=== PATIENT | male | born 1955 | race Caucasian/White ===

== ENCOUNTER 2016-12-05 14:58 | Emergency (ER) | payer OTHER ==
[2016-12-05 15:17] VITALS: BP 158/72; PULSE 66; TEMP 98.2; BMI 26.4
--- NOTE | 2016-12-05 16:51 | PDOC ---
History of Present Illness <Rosy Stevens - Last Filed: 12/05/16 16:53> - General History Source: Patient Exam Limitations: No Limitations - History of Present Illness Initial Comments: 12/05/16 17:00 The patient is a 61 year old male, with a significant past medical history of AFib (on aspirin), hypertension, hyperlipidemia, and anxiety, who presents to the emergency department complaining of pain in his mouth for approximately 2 weeks. Patient reports that earlier in the fall he was evaluated for his pain by his dentist, Dr. Anderson, who suggested the patient needed a root canal. At the time, Dr. Anderson was unable to perform the root canal, thus the patient was referred to an oral surgeon for extraction of his tooth. After the tooth extraction the patient reports associated pain in his gums, for which his dentist recommended Sensodyne and ACT. Patient reports the Sensodyne and ACT resolved his pain in April of 2016. However, as of 2 weeks ago, the pain returned. He describes the pain as a diffuse intermittent sharpness. He reports tearfulness and fluid in his ears. Yesterday, patient reports new onset of a headache. Patient reports he has followed up with his dentist, oral surgeon, and director of sales and marketing for evaluation of his symptoms. Patient states he was referred to a neurologist for further evaluation of his pain. Patient denies any fever, chills, cough, or dizziness. He denies any trauma to the site of his pain. Allergies: None reported Past Surgical History: Ablations X2 Social History: Current everyday smoker. No ETOH or drug use. Dentist: Dr. Anderson <Tico Zuniga - Last Filed: 12/05/16 17:04> - General Chief Complaint: Pain Stated Complaint: PAIN IN MOUTH Time Seen by Provider: 12/05/16 15:55 Past History - Past Medical History Cardiac Disorders: Yes (A FIB) Disorders: Yes HTN: Yes Hypercholesterolemia: Yes Psychiatric Problems: Yes (ANXIETY) - Surgical History Cardiac Surgery: Yes (ABLATIONS X 2FOR AFIB) - Psycho/Social/Smoking Cessation Hx Anxiety: No Suicidal Ideation: No Smoking History: Current every day smoker Number of Cigarettes Smoked Daily: 20 Information on smoking cessation initiated: Yes 'Breaking Loose' booklet given: 12/05/16 Hx Alcohol Use: No Drug/Substance Use Hx: No Substance Use Type: None <Rosy Stevens - Last Filed: 12/05/16 16:53> <Tico Zuniga - Last Filed: 12/05/16 17:04> - Past Medical History Allergies/Adverse Reactions: Allergies Allergy/AdvReac Type Severity Reaction Status Date / Time No Known Allergies Allergy Verified 12/05/16 15:01 Home Medications: Ambulatory Orders Aspirin [ASA -] 81 mg PO DAILY 12/05/16 Atenolol [Tenormin -] 50 mg PO DAILY 12/05/16 Atorvastatin Ca [Lipitor] 10 mg PO HS 12/05/16 Clonazepam [KlonoPIN] 0.5 mg PO DAILY 12/05/16 Gabapentin 300 mg PO ASDIR #90 capsule 12/05/16 Losartan Potassium 25 mg PO DAILY 12/05/16 Tamsulosin HCl 0.4 mg PO DAILY 12/05/16 Review of Systems - Review of Systems Able to Perform ROS?: Yes Comments:: 12/05/16 17:00 GENERAL/CONSTITUTIONAL: No fever or chills. No weakness. HEAD, EYES, EARS, NOSE AND THROAT: Yes: +diffuse, mouth pain, +nasal drip, + fluid in ear. No change in vision. No ear pain or discharge. No sore throat. CARDIOVASCULAR: No chest pain or shortness of breath. RESPIRATORY: No cough, wheezing, or hemoptysis. GASTROINTESTINAL: No nausea, vomiting, diarrhea or constipation. GENITOURINARY: No dysuria, frequency, or change in urination. MUSCULOSKELETAL: No joint or muscle swelling or pain. No neck or back pain. SKIN: No rash NEUROLOGIC: Yes: +headache. No vertigo, loss of consciousness, or change in strength/sensation. ENDOCRINE: No increased thirst. No abnormal weight change. HEMATOLOGIC/LYMPHATIC: No anemia, easy bleeding, or history of blood clots. ALLERGIC/IMMUNOLOGIC: No hives or skin allergy. <Tico Zuniga - Last Filed: 12/05/16 17:04> *Physical Exam - Vital Signs Last Vital Signs Temp Pulse Resp BP Pulse Ox 98.2 F 66 18 158/72 98 12/05/16 15:01 12/05/16 15:01 12/05/16 15:01 12/05/16 15:01 12/05/16 15:01 - Physical Exam Comments: GENERAL: Awake, alert, and fully oriented, in no acute distress HEAD: No signs of trauma EYES: PERRLA, EOMI, sclera anicteric, conjunctiva clear ENT: Auricles normal inspection, hearing grossly normal, nares patent, oropharynx clear without exudates. Moist mucosa. Teeth with multiple fillings, many with exposed roots. NECK: Normal ROM, supple, no lymphadenopathy, JVD, or masses NEUROLOGICAL: Cranial nerves II through XII grossly intact. Normal speech, normal gait. SKIN: Warm, Dry, normal turgor, no rashes or lesions noted. <Rosy Stevens - Last Filed: 12/05/16 16:53> - Vital Signs Last Vital Signs Temp Pulse Resp BP Pulse Ox 98.2 F 66 18 158/72 98 12/05/16 15:01 12/05/16 15:01 12/05/16 15:01 12/05/16 15:01 12/05/16 15:01 <Tico Zuniga - Last Filed: 12/05/16 17:04> Medical Decision Making - Medical Decision Making Given that his pain improved with sensodyne, would suspect that this is related to the exposed roots of his teeth. His pain is intermittent, sharp, and radiates to different areas of his mouth. There is no tenderness to percussion, no signs of abscess. Symptoms are not consistent with trigeminal neuralgia nor cluster headache. Will start on gabapentin, refer to regulatory agency director to examine his gums. <Rosy Stevens - Last Filed: 12/05/16 16:53> *DC/Admit/Observation/Transfer - Discharge Dispostion Admit: No <Rosy Stevens - Last Filed: 12/05/16 16:53> - Attestations Scribe Attestion: 12/05/16 17:03 Documentation prepared by Tico Zuniga, acting as medical data analyst for Rosy Stevens MD. <Tico Zuniga - Last Filed: 12/05/16 17:04> Diagnosis at time of Disposition: Pain, dental - Discharge Dispostion Disposition: HOME Condition at time of disposition: Stable - Prescriptions Prescriptions: Gabapentin 300 mg PO ASDIR #90 capsule - Referrals - Patient Instructions Printed Discharge Instructions: DI for Dental Pain, Smoking Cessation - Post Discharge Activity
== END 2016-12-05 17:06 | disposition home or self-care (01) ==
LOC: FER 14:58
DX: K08.89 Other specified disorders of teeth and supporting structures (principal); I48.91 Unspecified atrial fibrillation; F41.9 Anxiety disorder, unspecified; E78.00 Pure hypercholesterolemia, unspecified; I10 Essential (primary) hypertension; F17.210 Nicotine dependence, cigarettes, uncomplicated
CPT/HCPCS: 99281-25